=== PATIENT | female | born 1955 | race Two or more races ===

== ENCOUNTER 2021-01-07 08:00 | Outpatient (CLI) | payer OTHER | END 2021-01-07 23:59 | disposition home or self-care (01) | LOC: LAB 08:00 | PROVIDERS: ATTEND Specialist | DX: Z01.812 Encounter for preprocedural laboratory examination (principal); Z20.822 Contact with and (suspected) exposure to COVID-19 | CPT/HCPCS: C9803; U0003 ==

== ENCOUNTER 2021-01-13 07:38 | Day surgery (SDC) | payer OTHER ==
--- NOTE | 2021-01-13 08:00 | NUR ---
RN MS NOTES RECEIVED PT FROM ADMIN STAFF, AMBULATORY WITH STEADY GAIT, ALERT AND ORIENTED, RESPIRATIONS NORMAL, DENIES PAIN, PT SIGNED ALL CONSENTS FOR LEFT SHOULDER SURGERY AND LEFT CARPAL TUNNEL RELEASE, PT WAS GOWNED, VITAL SIGNS TAKEN AND RECORDED, PICKED UP BY O.R. STAFF VIA BED, IN STABLE CONDITION.
[2021-01-13] MEDS ORDERED: EPINEPHRINE (1:1000) 1 MG/ML AMPUL ONE (09:02)
[2021-01-13] MEDS ORDERED: LIDOCAINE 1% INJ 50 ML MDV IJ ONE (09:03)
[2021-01-13] MEDS ORDERED: ROCURONIUM BROMIDE 50 MG/5 ML ONE (09:05)
[2021-01-13] MEDS ORDERED: HYDROMORPHONE INJ 2 MG/ML DISP.SYRIN ONE (09:05)
[2021-01-13] MEDS ORDERED: FENTANYL PF 100MCG/2ML AMPUL ONE (09:05)
[2021-01-13] MEDS ORDERED: KETOROLAC TROMETHAMINE INJ 30 MG/ML VIAL ONE (09:26)
[2021-01-13] MEDS ORDERED: CEFAZOLIN 1 GM ONE (09:42)
[2021-01-13] MEDS ORDERED: methylPREDNISolone ACETATE 80 MG/ML VIAL ONE (11:02)
[2021-01-13 11:25] VITALS: BP 132/74
--- NOTE | 2021-01-13 11:26 | NUR ---
RN MS NOTES RECEIVED PT FROM LUX PATRICK, O.R. NURSE VIA BED, PT IS AWAKE, ALERT AND ORIENTED, NO COMPLAINT OF PAIN, RESPIRATIONS NORMAL, VITALS TAKEN AND RECORDED, SLING AT LEFT ARM IN PLACE, NO BLEEDING NOTED TO INCISION SITES AT LEFT SHOULDER AND LEFT HAND, DRESSING DRY AND INTACT, ICE APPLIED, POST OP ORDERS RECEIVED, NOTED AND CARRIED OUT.
[2021-01-13 11:40] VITALS: BP 137/65
[2021-01-13 11:55] VITALS: BP 139/65
[2021-01-13] MEDS ORDERED: HYDROCODONE/APAP 5/325MG TABLET PO PRN ×2 (14:00)
[2021-01-13 16:00] VITALS: BP 123/68
--- NOTE | 2021-01-13 18:08 | NUR ---
RN MS NOTES PT IN BED, AWAKE, ALERT AND ORIENTED, PAIN MEDS GIVEN FOR LEFT SHOULDER AND LEFT HAND PAIN, SLING IN PLACE, PT ABLE TO AMBULATE TO THE BATHROOM WITH STEADY GAIT, DISCHARGE AND MEDICATION INSTRUCTIONS PROVIDED TO PT, VERBALIZED UNDERSTANDING, ASSISTED TO HOSPITAL LOBBY VIA WHEELCHAIR BY MANAGER RECOVERY, PICKED UP BY SON, LEFT VIA PRIVATE CAR IN STABLE CONDITION.
== END 2021-01-13 15:00 | disposition home or self-care (01) ==
LOC: DS 07:38 → UNDOADMIN 07:42 → MED 07:42 → DS 15:00 → UNDODISIN 18:00
PROVIDERS: ATTEND Specialist
DX: M75.42 Impingement syndrome of left shoulder (principal); M75.110 Incomplete rotator cuff tear or rupture of unspecified shoulder, not specified as traumatic; G56.02 Carpal tunnel syndrome, left upper limb; I10 Essential (primary) hypertension; K21.9 Gastro-esophageal reflux disease without esophagitis; G62.9 Polyneuropathy, unspecified; M94.8X1 Other specified disorders of cartilage, shoulder; Z98.890 Other specified postprocedural states; Z79.899 Other long term (current) drug therapy
CPT/HCPCS: 29823; 29826; 64721; A4217; A4565; A6402; J0171; J0690 ×2; J1040; J1100; J1170; J1885; J2405; J2704; J3490 ×4; J7030; G0378; J3010